=== PATIENT | male | born 2000 | race Caucasian/White ===

== ENCOUNTER 2022-08-05 18:13 | Emergency (ER) | payer OTHER ==
[2022-08-05 18:37] LABS: RAPID STREP SCREEN Negative (Negative)
[2022-08-05] MEDS ORDERED: DEXAMETHASONE 10 MG/ML VIAL PO STA (18:54)
[2022-08-05] MEDS ORDERED: CHERRY SYRUP 10 ML UDC PO ONE (18:54)
[2022-08-05 18:59] VITALS: BP 144/77
--- NOTE | 2022-08-05 18:59 | ED Physician Documentation ---
PD HPI HEENT - Stated complaint Stated Complaint: SORE THROAT - Chief complaint Chief Complaint: Heent - History obtained from History obtained from: Patient - History of Present Illness Location: Throat Improves: Medication, Nothing Worsens: Darineugenio - Additional information Additional information: 21-year-old male presents with left-sided throat pain which started a few hours ago. He said it was probably just a regular sore throat was going to go home and take some ibuprofen however it seemed to be getting worse and he felt that it was soreness underneath the skin. He was concerned that it was something different. He does state that he went somewhere today, ended fall and hit his head but denies any trauma to that particular location, he does have some soreness when he opens his jaw but no clicking Or obvious deformity. He denies any known sores or ulcerations to his mouth but states that his tongue does feel somewhat sore. He is not attempted any medications or other treatment for this. He denies any fever chills, no cough or URI symptoms, no chest pain or difficulty breathing. Review of Systems Constitutional: reports: Reviewed and negative (Other systems reviewed and are negative except as noted in HPI.), Other. denies: Fever PD PAST MEDICAL HISTORY - Past Medical History Past Medical History: No Cardiovascular: None Respiratory: None Neuro: None Endocrine/Autoimmune: None GI: None : None HEENT: None Psych: None Musculoskeletal: None Derm: None - Past Surgical History Past Surgical History: Yes Ortho: Other - Present Medications Home Medications: Ambulatory Orders Medication Instructions Recorded Confirmed No Known Home Medications 08/05/22 08/05/22 - Allergies Allergies/Adverse Reactions: Allergies Allergy/AdvReac Type Severity Reaction Status Date / Time amoxicillin Allergy Unknown Verified 08/05/22 18:16 Penicillins Allergy Unknown Verified 08/05/22 18:16 - Social History Does the pt smoke?: No Smoking Status: Never smoker Does the pt drink ETOH?: No Does the pt have substance abuse?: No - Immunizations Immunizations are current?: Yes PD ED PE NORMAL - Vitals Vital signs reviewed: Yes - General General: Alert and oriented X 3, No acute distress, Well developed/nourished - HEENT HEENT: Atraumatic, PERRL, EOMI, Moist mucous membranes, Pharynx benign, Dentition benign, Other (No obvious mandible deformity or swelling, no TMJ click, no signs of retropharyngeal Or other neck abscess.) - Neck Neck: Supple, no meningeal sign, Other (Left anterior cervical lymphadenopathy, small,) - Cardiac Cardiac: RRR, No murmur - Respiratory Respiratory: No respiratory distress, Clear bilaterally - Derm Derm: Normal color, Warm and dry, No rash Results - Vitals Vitals: Vital Signs - 24 hr 08/05/22 18:17 Temperature 37.2 C Heart Rate 98 Respiratory 16 Rate Blood Pressure 159/77 H O2 Saturation 100 Oxygen O2 Source Room air - Labs Labs: Laboratory Tests 08/05/22 18:20 Group A Strep Rapid Negative PD Medical Decision Making - ED course Complexity details: reviewed results, considered differential, d/w patient ED course: This is a well-appearing 21-year-old who presents with Throat pain though states is not typical of a sore throat. Feels like soreness underneath the skin according to the patient. His physical exam is well-appearing, no signs of dental abscess or retropharyngeal abscess or other sores in the mouth, no skin abnormalities or cellulitis, no mandible deformities or swelling. I discussed with patient that this may be secondary to a viral illness versus lymph node swelling from a number of reasons including mouth sores or trauma. He was advised to continue Tylenol and ibuprofen and soft diet until symptoms improve. I discussed return precautions if new or worsening symptoms such as difficulty swallowing or managing secretions, different occultly turning his neck, or opening mouth or fever or other new concerns. Departure - Departure Disposition: 01 Home, Self Care Condition: Good Instructions: Sore Throat Comments: Your throat exam today is ok and no strep is noted on your exam. This could be viral pharyngitis (sore throat) or related to trauma. We gave you steroids here in the ER and you can continue ibuprofen and tylenol for pain. If you have worsening symptoms in the next few days, please follow up with the ER or primary doctor. Eat a soft/liquid diet until symptoms improved.
== END 2022-08-05 19:04 | disposition home or self-care (01) ==
LOC: ED 18:13
DX: R07.0 Pain in throat (principal)
CPT/HCPCS: 87070; 87430; 99283; A9270

== ENCOUNTER 2022-09-01 13:22 | Outpatient (CLI) | payer OTHER ==
--- NOTE | 2022-09-01 15:50 | XRAY Report ---
PROCEDURE: Ribs w/PA Chest RT INDICATIONS: CRUSHED CHEST TECHNIQUE: 2 views of the right ribs were acquired, along with a single view chest. COMPARISON: None FINDINGS: Surgical changes and devices: None. Bones and chest wall: No fractures or dislocations. No suspicious bony lesions. Overlying soft tis sues appear unremarkable. Lungs and pleura: No pleural effusions or pneumothorax. Lungs appear clear. Mediastinum: Mediastinal contours appear normal. Heart size is normal. IMPRESSION: 1. No evidence of displaced right rib fracture. 2. No evidence of acute pulmonary process. Reviewed by: Vikas Trinidad MD on 09/01/2022 3:49 PM PST Approved by: Vikas Trinidad MD on 09/01/2022 3:49 PM PST Station ID: [id number]
== END 2022-09-01 13:23 | disposition home or self-care (01) ==
LOC: DI 13:22
PROVIDERS: ATTEND Nurse Practitioner
DX: S28.0XXA Crushed chest, initial encounter (principal)

== ENCOUNTER 2023-04-13 19:16 | Emergency (ER) | payer OTHER ==
[2023-04-13] MEDS ORDERED: BUFFERED LIDOCAINE 10 ML SYRINGE SUBQ STA (19:27)
[2023-04-13 19:28] VITALS: BP 140/80; O2SAT 100
[2023-04-13] MEDS ORDERED: IBUPROFEN 600 MG TABLET PO STA (20:06)
--- NOTE | 2023-04-13 20:08 | ED Physician Documentation ---
History of Present Illness - Stated complaint Stated Complaint: INGROWN TOENAIL - Chief complaint Chief Complaint: Ext Problem - Additonal information Additional information: 22-year-old male presents emergency department for evaluation of a left ingrowing great nail laterally. Has had this nail excised multiple times. No drainage but increasing pain over the last several months. Unable to follow-up with podiatry or [place]. Review of Systems Skin: reports: Other (Ingrowing left great nail) PD PAST MEDICAL HISTORY - Past Medical History Cardiovascular: None Respiratory: None Neuro: None Endocrine/Autoimmune: None GI: None : None HEENT: None Psych: None Musculoskeletal: None Derm: None - Past Surgical History Past Surgical History: Yes Ortho: Other - Present Medications Home Medications: Ambulatory Orders Medication Instructions Recorded Confirmed No Known Home Medications 08/05/22 04/13/23 - Allergies Allergies/Adverse Reactions: Allergies Allergy/AdvReac Type Severity Reaction Status Date / Time amoxicillin Allergy Unknown Verified 04/13/23 19:22 Penicillins Allergy Unknown Verified 04/13/23 19:22 - Social History Does the pt smoke?: No Smoking Status: Never smoker Does the pt drink ETOH?: No Does the pt have substance abuse?: No - Immunizations Immunizations are current?: Yes PD ED PE EXPANDED - Extremities Extremities: Left toe(s) (Left great toe hyperkeratotic ingrowing medially with surrounding erythema but no drainage.) Results - Vitals Vitals: Vital Signs - 24 hr 04/13/23 19:22 Temperature 37.2 C Heart Rate 88 Respiratory 16 Rate Blood Pressure 140/80 H O2 Saturation 100 Oxygen O2 Source Room air Procedures - General procedure General procedure: Using 1% lidocaine the left toe was fully anesthetized. Betadine was applied to the nailbed and electrocautery was used to separate the nail laterally. Using forceps the nail was removed. No evidence of burn to the nailbed. Xeroform was applied and wound was wrapped with gauze. PD Medical Decision Making - ED course Complexity details: d/w patient ED course: Ingrowing left great nail that has been excised multiple times with PROTEGO. He has a hyperkeratotic nail. We did use electrocautery to dissect the nail and it was easily removed from the nailbed using forceps. No evidence of secondary infection. Discussed routine nailbed care as well as usual emergent return precautions for concerns of infection. We will continue to follow with [facility] and podiatry moving forward. Departure - Departure Disposition: 01 Home, Self Care Clinical Impression: Ingrown nail of great toe of left foot Condition: Stable Record reviewed to determine appropriate education?: Yes Comments: Chi we partially excised the great nail on your left foot. This will take several months to grow in. In general I recommend that you soak the toe in warm Epsom salt twice daily. Apply bacitracin and nonstick gauze to the wound. Return to the ER if you have any concerns of infection. Continue to follow with podiatry. General take 500 mg of Tylenol or alternate with 600 mg of ibuprofen three times a day for foot discomfort.
== END 2023-04-13 20:13 | disposition home or self-care (01) ==
LOC: ED 19:16
DX: L60.0 Ingrowing nail (principal)
CPT/HCPCS: 11765; 99282; 99283; A9270

== ENCOUNTER 2024-03-08 13:17 | Emergency (ER) | payer OTHER ==
--- NOTE | 2024-03-08 13:50 | ED Physician Documentation ---
PD HPI ABD PAIN - Stated complaint Stated Complaint: ABD PX - Chief complaint Chief Complaint: Abd Pain - History obtained from History obtained from: Patient - Additional information Additional information: Otherwise healthy 23-year-old gentleman with no history of abdominal surgeries who is active duty in the [employer] presents with 4 days of intermittent left upper quadrant pain worse after eating. Not associate with constipation, nausea, vomiting, fevers. He has been fatigued for 2 weeks so wonders if he might have mono but he has no sore throat. PD PAST MEDICAL HISTORY - Past Medical History Cardiovascular: None Respiratory: None Neuro: None Endocrine/Autoimmune: None GI: None : None HEENT: None Psych: None Musculoskeletal: None Derm: None - Past Surgical History Past Surgical History: Yes Ortho: Other - Present Medications Home Medications: Ambulatory Orders Medication Instructions Recorded Confirmed Metoclopramide [Reglan] 10 mg PO Q6H PRN #20 tablet 03/08/24 - Allergies Allergies/Adverse Reactions: Allergies Allergy/AdvReac Type Severity Reaction Status Date / Time amoxicillin Allergy Unknown Verified 03/08/24 13:35 Penicillins Allergy Unknown Verified 03/08/24 13:35 - Social History Does the pt smoke?: No Smoking Status: Never smoker Does the pt drink ETOH?: Yes Does the pt have substance abuse?: No - Immunizations Immunizations are current?: Yes PD ED PE NORMAL - Vitals Vital signs reviewed: Yes - General General: Alert and oriented X 3, No acute distress - HEENT HEENT: Pharynx benign - Cardiac Cardiac: RRR, No murmur - Respiratory Respiratory: No respiratory distress, Clear bilaterally - Abdomen Abdomen: Other (Mild left upper quadrant tenderness without surgical signs) - Neuro Neuro: Alert and oriented X 3 Results - Vitals Vitals: Vital Signs - 24 hr 03/08/24 13:32 Temperature 36.9 C Heart Rate 73 Respiratory 15 Rate Blood Pressure 140/84 H O2 Saturation 99 Oxygen O2 Source Room air - Labs Labs: Laboratory Tests 03/08/24 03/08/24 03/08/24 13:38 13:46 13:46 WBC 8.1 RBC 5.24 Hgb 15.4 Hct 44.8 MCV 85.5 MCH 29.4 MCHC 34.4 RDW 12.1 Plt Count 250 MPV 9.9 Neut # (Auto) 4.8 Lymph # (Auto) 2.0 Kane # (Auto) 0.7 Eos # (Auto) 0.6 Baso # (Auto) 0.0 Absolute Nucleated RBC 0.00 Nucleated RBC % 0.0 Sodium 136 Potassium 4.1 Chloride 106 Carbon Dioxide 24 Anion Gap 6.0 BUN 18 Creatinine 1.0 Estimated GFR (MDRD) 93 Glucose 96 Calcium 9.5 Total Bilirubin 0.6 AST 22 ALT 26 Alkaline Phosphatase 63 Total Protein 6.8 Albumin 4.3 Globulin 2.5 Albumin/Globulin Ratio 1.7 Lipase 15 Urine Color LIGHT YELLOW Urine Clarity CLEAR Urine pH 7.0 Ur Specific [place] <=1.005 Urine Protein NEGATIVE Urine Glucose (UA) NEGATIVE Urine Ketones NEGATIVE Urine Occult Blood NEGATIVE Urine Nitrite NEGATIVE Urine Bilirubin NEGATIVE Urine Urobilinogen 0.2 (NORMAL) Ur Leukocyte Esterase NEGATIVE Ur Microscopic Review NOT INDICATED Urine Culture Comments NOT INDICATED Infectious Kane Assay 03/08/24 13:46 WBC RBC Hgb Hct MCV MCH MCHC RDW Plt Count MPV Neut # (Auto) Lymph # (Auto) Kane # (Auto) Eos # (Auto) Baso # (Auto) Absolute Nucleated RBC Nucleated RBC % Sodium Potassium Chloride Carbon Dioxide Anion Gap BUN Creatinine Estimated GFR (MDRD) Glucose Calcium Total Bilirubin AST ALT Alkaline Phosphatase Total Protein Albumin Globulin Albumin/Globulin Ratio Lipase Urine Color Urine Clarity Urine pH Ur Specific [place] Urine Protein Urine Glucose (UA) Urine Ketones Urine Occult Blood Urine Nitrite Urine Bilirubin Urine Urobilinogen Ur Leukocyte Esterase Ur Microscopic Review Urine Culture Comments Infectious Kane Assay NEGATIVE - Rads (name of study) CT a/p Relevant Findings:: Final report received, EMP independent interpretation of test PD Medical Decision Making - ED course ED course: He presents with 4 days of left upper quadrant pain that is postprandial with pretty benign examination. He was worried about mono, but Monospot is negative. Differential would include ulcer disease, gastric outlet obstruction, atypical biliary issue, less likely would be surgical emergency, vascular issue especially given his young age and healthy status. Trialed a GI cocktail which was ineffective. Lab work including CBC, CMP, urinalysis, and mono testing was all negative/normal. The CT was read as being constipated, but if he has excess stool load to my eye it looks like it is on the right side. I also noted that he has a very large gastrum. At that point he was queried on his last meal. His last meal was a large meal but it was at least 5 [address] prior to the CT images being done. This makes gastroparesis or gastric outlet obstruction more likely. For promotility he was administered metoclopramide and he felt better after this. He was advised to ea frequent small meals as opposed to large meals all at once and follow-up with his primary care physician for consideration for GI referral. Otherwise diagnostic testing included CBC, CMP, urinalysis, and Monospot testing all of which was negative/normal. Departure - Departure Disposition: 01 Home, Self Care Clinical Impression: Abdominal pain Qualifiers: Abdominal location: left upper quadrant Qualified Code(s): R10.12 - Left upper quadrant pain Condition: Stable Record reviewed to determine appropriate education?: Yes Instructions: ED Abdominal Pain Unkn Cause Male Prescriptions: Metoclopramide [Reglan] 10 mg PO Q6H PRN #20 tablet PRN Reason: nausea or headache Comments: You were seen today for left upper quadrant pain. As discussed, I think there was a significant amount of food still in your stomach which is somewhat surprising since you had not eaten in about 5 hours when we shot the pictures. He did not receive any relief with a GI cocktail which makes ulcer disease less likely so I do worry about gastric motility or what is called gastric outlet obstruction. I am prescribing the same medication that helped empty your stomach and make you feel better here today. 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 Return for new or worsening symptoms. Forms: PCP List
[2024-03-08 13:52] LABS: BASOPHILS % (AUTO) 0.4 %; EOSINOPHILS # (AUTO) 0.6 10^3/uL (0.0-0.7); EOSINOPHILS % (AUTO) 7.6 %; HCT - HEMATOCRIT 44.8 % (42.0-52.0); HGB - HEMOGLOBIN 15.4 g/dL (14.0-18.0); LYMPHOCYTES % (AUTO) 24.4 %; MEAN CORPUSCULAR HEMOGLOBIN 29.4 pg (27.0-31.0); MEAN CORPUSCULAR HGB CONC 34.4 g/dL (32.0-36.0); MEAN CORPUSCULAR VOLUME 85.5 fL (80.0-94.0); MEAN PLATELET VOLUME 9.9 fL (7.4-11.4); MONOCYTES # (AUTO) 0.7 10^3/uL (0.0-1.0); MONOCYTES % (AUTO) 8.3 %; NEUTROPHILS # (AUTO) 4.8 10^3/uL (1.5-6.6); NEUTROPHILS % (AUTO) 59.1 %; PLT - PLATELET COUNT 250 10^3/uL (130-450); RED BLOOD COUNT 5.24 10^6/uL (4.70-6.10); RED CELL DISTRIBUTION WIDTH 12.1 % (12.0-15.0); WHITE BLOOD COUNT 8.1 x10^3/uL (4.8-10.8)
[2024-03-08 14:00] LABS: INFECTIOUS MONONUCLEOSIS NEGATIVE (Negative)
[2024-03-08 14:05] LABS: BILIRUBIN,URINE NEGATIVE (NEGATIVE); CLARITY,URINE CLEAR (CLEAR); GLUCOSE, URINE (UA) NEGATIVE (NEGATIVE); KETONES,URINE (UA) NEGATIVE (NEGATIVE); LEUKOCYTE ESTERASE, URINE NEGATIVE (NEGATIVE); NITRITE,URINE NEGATIVE (NEGATIVE); OCCULT BLOOD,URINE NEGATIVE (NEGATIVE); PROTEIN,URINE NEGATIVE (NEGATIVE); UROBILINOGEN,URINE 0.2 (NORMAL) E.U./dL (NORMAL)
[2024-03-08] MEDS: LIDOCAINE VISCOUS 2% 15 ML UDC MM STA (14:05)
[2024-03-08] MEDS: MAG HYDROX/AL HYDROX/SIMETH 30 ML UDC PO STA (14:05)
[2024-03-08 14:20] LABS: ALBUMIN 4.3 g/dL (3.2-5.5); ALBUMIN/GLOBULIN RATIO 1.7 (1.0-2.2); BILIRUBIN,TOTAL 0.6 mg/dL (0.2-1.0); CALCIUM 9.5 mg/dL (8.5-10.3); POTASSIUM 4.1 mmol/L (3.5-4.5); TOTAL PROTEIN 6.8 g/dL (6.4-8.9)
[2024-03-08] MEDS ORDERED: iohexoL-300 100 ML VIAL ONE (14:31)
[2024-03-08] MEDS: KETOROLAC 15 MG/ML VIAL IVP STA (14:32)
[2024-03-08] MEDS: iohexoL-300 100 ML VIAL IVP ONE (15:58)
[2024-03-08] MEDS: METOCLOPRAMIDE 10 MG/2 ML VIAL IVP STA (16:03)
--- NOTE | 2024-03-08 16:32 | CT Report ---
PROCEDURE: Abdomen/Pelvis W INDICATIONS: IV only LUQ pain CONTRAST: 100 IV TECHNIQUE: After the administration of intravenous contrast, a CT scan of the abdomen and pelvis was performed. Images were recorded and evaluated at appropriate window settings. Reformats: coronal and sagittal. F or radiation dose reduction, the following was used: automated exposure control, adjustment of mA and /or kV according to patient size. COMPARISON: None. FINDINGS: Image quality: Diagnostic. Lower chest: Unremarkable. Liver: No solid mass. Gallbladder: No radiopaque stones or wall thickening. Biliary tree: No intrahepatic or extrahepatic dilation, accounting for age. Spleen: No splenomegaly. Pancreas: No pancreatic ductal dilation. Adrenals: No adrenal nodule. Kidneys and ureters: Symmetric enhancement. No hydronephrosis. No renal cystic lesion which requires follow up. No solid mass. Stomach, bowel and peritoneum: No gastric or small bowel dilation. No abnormal wall thickening. No pa thologic free fluid. Normal appendix (4/80). Above-average colonic stool burden. Lymph nodes: No central or retroperitoneal adenopathy. Vessels: No infrarenal aortic aneurysm. Patent portal vein. Patent hepatic, splenic and bilateral james al veins. PELVIS Reproductive organs: Unremarkable. Bladder: No abnormal wall thickening, accounting for underdistention. Pelvic lymph nodes: No pelvic adenopathy by size criteria. Bones: No aggressive osseous abnormality. Other: Tiny fat-containing umbilical hernia. No inguinal hernia. IMPRESSION: 1.No acute pathology in the abdomen or pelvis to explain patient's left upper quadrant pain. 2.Above-average colonic stool burden which may correlate with constipation. Reviewed by: Jaemel Hummel MD on 03/08/2024 3:31 PM YARELY Approved by: Jameel Hummel MD on 03/08/2024 3:31 PM YARELY Station ID: [id number]
[2024-03-08 16:48] VITALS: BP 151/74; O2SAT 98
== END 2024-03-08 16:44 | disposition home or self-care (01) ==
LOC: ED 13:17
DX: R10.12 Left upper quadrant pain (principal)
CPT/HCPCS: 36415; 74177; 80053; 81003; 83690; 85025; 86308; 96374; 96375; 99284; A9270; J2765; Q9967; 81001; 87086

== ENCOUNTER 2024-03-10 20:08 | Emergency (ER) | payer OTHER ==
[2024-03-10 20:22] VITALS: BP 160/93; O2SAT 100
[2024-03-10 21:15] LABS: BASOPHILS # (AUTO) 0.1 10^3/uL (0.0-0.1); BASOPHILS % (AUTO) 0.6 %; EOSINOPHILS # (AUTO) 0.7 10^3/uL (0.0-0.7); EOSINOPHILS % (AUTO) 8.9 %; HCT - HEMATOCRIT 43.7 % (42.0-52.0); HGB - HEMOGLOBIN 14.6 g/dL (14.0-18.0); LYMPHOCYTES # (AUTO) 1.9 10^3/uL (1.5-3.5); LYMPHOCYTES % (AUTO) 24.1 %; MEAN CORPUSCULAR HEMOGLOBIN 28.9 pg (27.0-31.0); MEAN CORPUSCULAR HGB CONC 33.4 g/dL (32.0-36.0); MEAN CORPUSCULAR VOLUME 86.5 fL (80.0-94.0); MONOCYTES # (AUTO) 0.7 10^3/uL (0.0-1.0); MONOCYTES % (AUTO) 9.1 %; NEUTROPHILS # (AUTO) 4.4 10^3/uL (1.5-6.6); NEUTROPHILS % (AUTO) 57.2 %; PLT - PLATELET COUNT 252 10^3/uL (130-450); RED BLOOD COUNT 5.05 10^6/uL (4.70-6.10); WHITE BLOOD COUNT 7.8 x10^3/uL (4.8-10.8)
[2024-03-10 21:33] LABS: ALBUMIN 4.3 g/dL (3.2-5.5); ALBUMIN/GLOBULIN RATIO 1.8 (1.0-2.2); BILIRUBIN,TOTAL 0.4 mg/dL (0.2-1.0); CALCIUM 9.3 mg/dL (8.5-10.3); POTASSIUM 4.1 mmol/L (3.5-4.5); TOTAL PROTEIN 6.7 g/dL (6.4-8.9)
== END 2024-03-10 21:47 | disposition left against medical advice (07) ==
LOC: ED 20:08
DX: R10.9 Unspecified abdominal pain (principal); Z53.21 Procedure and treatment not carried out due to patient leaving prior to being seen by health care provider
CPT/HCPCS: 36415; 80053; 83690; 85025